=== PATIENT | male | born 1955 | race African-American/Black ===

== ENCOUNTER → 2016-07-12 | Outpatient (CLI) | payer MEDICARE, OTHER ==
[~2016-07-12] VITALS: Ht 162.6 cm; Wt 59.0 kg
[~2016-07-12] MED LIST: ACET325T47 PO; ASCO500 PO; ASPI81 PO; BACL10TA PO; BACTDSB PO; BISA10S PR; CIPR-278 PO; COLL30OI TP; DOCU-275 PO; DOCU100C PO; FERR-89 PO; FERR325T24 PO; FINA5TAB41 PO; LEVE250T55 PO; LEVE500T53 PO; LEVO500 PO; OMEP20CA4 PO; PETR113O TP; SENN-30 PO; VITAD1000 PO
[2016-07-12 09:42] VITALS: BP 109/63
== END | disposition home or self-care (01) ==
LOC: HBOWC 07:54
PROVIDERS: ATTEND Emergency Medicine
DX: L89.324 Pressure ulcer of left buttock, stage 4 (principal); L89.154 Pressure ulcer of sacral region, stage 4; L89.612 Pressure ulcer of right heel, stage 2; M62.50 Muscle wasting and atrophy, not elsewhere classified, unspecified site; I25.10 Atherosclerotic heart disease of native coronary artery without angina pectoris; G40.909 Epilepsy, unspecified, not intractable, without status epilepticus
CPT/HCPCS: 97597; 97598

== ENCOUNTER → 2016-07-19 | Outpatient (CLI) | payer MEDICARE, OTHER ==
[~2016-07-19] MED LIST changes: -BACTDSB PO; -CIPR-278 PO; -COLL30OI TP; -DOCU100C PO; -FERR-89 PO; -FERR325T24 PO; +FERS325 PO; -LEVE500T53 PO; -LEVO500 PO
[2016-07-19 14:11] VITALS: BP 128/72
== END | disposition home or self-care (01) ==
LOC: HBOWC 13:36
PROVIDERS: ATTEND Emergency Medicine
DX: L89.324 Pressure ulcer of left buttock, stage 4 (principal); L89.154 Pressure ulcer of sacral region, stage 4; L89.612 Pressure ulcer of right heel, stage 2; M21.371 Foot drop, right foot; R10.2 Pelvic and perineal pain; G89.29 Other chronic pain; M62.50 Muscle wasting and atrophy, not elsewhere classified, unspecified site; Q90.9 Down syndrome, unspecified; I25.10 Atherosclerotic heart disease of native coronary artery without angina pectoris; G40.909 Epilepsy, unspecified, not intractable, without status epilepticus
CPT/HCPCS: 97597; 97598

== ENCOUNTER → 2016-08-02 | Outpatient (CLI) | payer MEDICARE, OTHER ==
[~2016-08-02] MED LIST changes: +BACTDSB PO; +CIPR-278 PO; +COLL30OI TP; +FERR-89 PO; -FERS325 PO; +LEVE500T53 PO; +LEVO500 PO; +LIDOCAINE HCL 4% 50 ML SOLUTION TP ONE
[2016-08-02 14:45] VITALS: BP 100/60
== END | disposition home or self-care (01) ==
LOC: HBOWC 13:16
PROVIDERS: ATTEND Emergency Medicine
DX: L89.154 Pressure ulcer of sacral region, stage 4 (principal); L89.324 Pressure ulcer of left buttock, stage 4; L89.312 Pressure ulcer of right buttock, stage 2; L89.612 Pressure ulcer of right heel, stage 2; I25.10 Atherosclerotic heart disease of native coronary artery without angina pectoris; G40.909 Epilepsy, unspecified, not intractable, without status epilepticus
CPT/HCPCS: 87070; 87205; 97597; 97598

== ENCOUNTER → 2016-08-16 | Outpatient (CLI) | payer MEDICARE, OTHER ==
[~2016-08-16] MED LIST changes: -LIDOCAINE HCL 4% 50 ML SOLUTION TP ONE
[2016-08-16 13:38] VITALS: BP 103/70
== END | disposition home or self-care (01) ==
LOC: HBOWC 13:06
PROVIDERS: ATTEND Emergency Medicine
DX: L89.324 Pressure ulcer of left buttock, stage 4 (principal); L89.312 Pressure ulcer of right buttock, stage 2; L89.154 Pressure ulcer of sacral region, stage 4; M21.371 Foot drop, right foot; I95.9 Hypotension, unspecified; M62.50 Muscle wasting and atrophy, not elsewhere classified, unspecified site; I70.298 Other atherosclerosis of native arteries of extremities, other extremity
CPT/HCPCS: 87070; 87205; 97597; 97598

== ENCOUNTER 2016-08-18 13:10 | Emergency (ER) | payer MEDICARE, OTHER ==
[~2016-08-18] VITALS: Ht 165.1 cm; Wt 60.0 kg
[~2016-08-18 13:10] MED LIST changes: -BACTDSB PO; -FERR-89 PO; +FERS325 PO; -LEVE500T53 PO; -LEVO500 PO
[2016-08-18 14:18] LABS: BASOPHILS % (AUTO) 0.1 % (0.0-2.0); EOSINOPHILS % (AUTO) 0.2 % (1.0-6.0); HEMATOCRIT 35.3 % (41-53); HEMOGLOBIN 10.7 g/dL (13.5-17.5); LYMPHOCYTES # (AUTO) 1.9 K/uL (1.0-4.8); LYMPHOCYTES % (AUTO) 26.4 % (22.0-44.0); MEAN CORPUSCULAR HEMOGLOBIN 24.9 pg (26.0-34.0); MEAN CORPUSCULAR HGB CONC 30.3 G/dL (31.0-37.0); MEAN CORPUSCULAR VOLUME 82 fL (80-100); MONOCYTES # (AUTO) 0.9 K/uL (0.1-1.0); MONOCYTES % (AUTO) 12.5 % (2.0-9.0); NEUTROPHILS # (AUTO) 4.4 K/uL (1.8-7.7); NEUTROPHILS % (AUTO) 60.8 % (40.0-70.0); PLATELET COUNT (AUTO) 328 K/uL (150-450); RED BLOOD CELL COUNT(AUTO) 4.29 MIL/uL (4.50-5.90); RED CELL DISTRIBUTION WIDTH 16.1 % (11.5-14.5); WHITE BLOOD COUNT (AUTO) 7.2 K/uL (4.5-11.0)
[2016-08-18 14:25] LABS: ANION GAP 10 mmol/L (8-16); CALCIUM, TOTAL 8.4 mg/dL (8.8-10.5); CARBON DIOXIDE 25 mmol/L (22-29); CHLORIDE 102 mmol/L (98-107); CREATININE 1.16 mg/dL (0.60-1.30); GLOMERULAR FILTR. RATE CALC > 60 mL/min (>60); POTASSIUM 4.2 mmol/L (3.5-5.1); SODIUM SERUM 137 mmol/L (136-145); UREA NITROGEN, BLOOD 13 mg/dL (7-18)
[2016-08-18 14:30] LABS: ALANINE AMINOTRANSFERASE 38 U/L (12-78); ALBUMIN 2.2 g/dL (3.4-5.0); ASPARTATE AMINOTRANSFERASE 36 U/L (15-37); BILIRUBIN,TOTAL 0.2 mg/dL (0.1-1.0); TOTAL PROTEIN, SERUM 8.5 g/dL (6.4-8.2)
[2016-08-18 15:08] LABS: INFLUENZA TYPE B NEGATIVE FOR TYPE B (NEGATIVE)
[2016-08-18] MEDS ORDERED: LIDOCAINE HCL/PF 1% 2 ML VIAL IM ONE (16:15)
[2016-08-18] MEDS ORDERED: CefTRIAXone SODIUM 1 GM/VIAL IM ONE (16:15)
[2016-08-18] MEDS ORDERED: LEVE500T53 PO (16:17)
[2016-08-18 16:59] VITALS: BP 137/72
[2016-08-19] MEDS ORDERED: LEVO500 PO (11:50)
== END 2016-08-18 17:13 | disposition home or self-care (01) ==
LOC: EMS 13:12
DX: J40 Bronchitis, not specified as acute or chronic (principal); R62.7 Adult failure to thrive; Z79.82 Long term (current) use of aspirin
CPT/HCPCS: 36415; 71010; 80053; 85025; 87804; 96372; 99285; J0696; J3490

== ENCOUNTER → 2016-08-30 | Outpatient (CLI) | payer MEDICARE, OTHER ==
[~2016-08-30] MED LIST changes: +BACTDSB PO; -CIPR-278 PO; +FERR-89 PO; -FERS325 PO; -LEVE250T55 PO; +LEVE500T53 PO; +LEVO500 PO; +LIDOCAINE HCL 4% 50 ML SOLUTION TP ONE
[2016-08-30 13:59] VITALS: BP 113/77
== END | disposition home or self-care (01) ==
LOC: HBOWC 13:00
PROVIDERS: ATTEND Emergency Medicine
DX: L89.154 Pressure ulcer of sacral region, stage 4 (principal); L89.324 Pressure ulcer of left buttock, stage 4; L89.312 Pressure ulcer of right buttock, stage 2; M46.28 Osteomyelitis of vertebra, sacral and sacrococcygeal region; M21.371 Foot drop, right foot; I95.9 Hypotension, unspecified; I25.10 Atherosclerotic heart disease of native coronary artery without angina pectoris
CPT/HCPCS: 97597; 97598

== ENCOUNTER → 2016-09-13 | Outpatient (CLI) | payer MEDICARE, OTHER ==
[~2016-09-13] MED LIST changes: +CHLORHEXIDINE GLUCONATE 4% 118 ML TOPICAL LIQUID TP ONE; -LIDOCAINE HCL 4% 50 ML SOLUTION TP ONE
[2016-09-13 14:01] VITALS: BP 109/68
== END | disposition home or self-care (01) ==
LOC: HBOWC 13:11
PROVIDERS: ATTEND Emergency Medicine
DX: L89.154 Pressure ulcer of sacral region, stage 4 (principal); L89.324 Pressure ulcer of left buttock, stage 4; L89.312 Pressure ulcer of right buttock, stage 2; E11.69 Type 2 diabetes mellitus with other specified complication; M86.8X8 Other osteomyelitis, other site; M21.371 Foot drop, right foot; M62.50 Muscle wasting and atrophy, not elsewhere classified, unspecified site; Q90.9 Down syndrome, unspecified; I95.9 Hypotension, unspecified; I25.10 Atherosclerotic heart disease of native coronary artery without angina pectoris; Z79.82 Long term (current) use of aspirin
CPT/HCPCS: 87070; 87147; 87205; 97597; 97598

== ENCOUNTER → 2016-09-27 | Outpatient (CLI) | payer MEDICARE, OTHER ==
[~2016-09-27] MED LIST changes: -CHLORHEXIDINE GLUCONATE 4% 118 ML TOPICAL LIQUID TP ONE
[2016-09-27 12:18] VITALS: BP 102/48
== END | disposition home or self-care (01) ==
LOC: HBOWC 11:34
PROVIDERS: ATTEND Emergency Medicine
DX: L89.154 Pressure ulcer of sacral region, stage 4 (principal); L89.324 Pressure ulcer of left buttock, stage 4; L89.312 Pressure ulcer of right buttock, stage 2; M46.28 Osteomyelitis of vertebra, sacral and sacrococcygeal region
CPT/HCPCS: 97597

== ENCOUNTER → 2016-10-11 | Outpatient (CLI) | payer MEDICARE, OTHER ==
[2016-10-11 14:05] VITALS: BP 129/94
== END | disposition home or self-care (01) ==
LOC: HBOWC 12:54
PROVIDERS: ATTEND Emergency Medicine
DX: L89.154 Pressure ulcer of sacral region, stage 4 (principal); L89.324 Pressure ulcer of left buttock, stage 4; L89.312 Pressure ulcer of right buttock, stage 2; M62.50 Muscle wasting and atrophy, not elsewhere classified, unspecified site; Q90.9 Down syndrome, unspecified; M46.28 Osteomyelitis of vertebra, sacral and sacrococcygeal region; I25.10 Atherosclerotic heart disease of native coronary artery without angina pectoris; I95.9 Hypotension, unspecified
CPT/HCPCS: 97597; 97598

== ENCOUNTER → 2016-10-25 | Outpatient (CLI) | payer MEDICARE, OTHER ==
[~2016-10-25] MED LIST changes: -BACTDSB PO
[2016-10-25 14:06] VITALS: BP 143/96
== END | disposition home or self-care (01) ==
LOC: HBOWC 13:04
PROVIDERS: ATTEND Emergency Medicine Undersea and Hyperbaric Medicine
DX: L89.154 Pressure ulcer of sacral region, stage 4 (principal); L89.324 Pressure ulcer of left buttock, stage 4; L89.312 Pressure ulcer of right buttock, stage 2; I25.10 Atherosclerotic heart disease of native coronary artery without angina pectoris; E11.69 Type 2 diabetes mellitus with other specified complication; M46.28 Osteomyelitis of vertebra, sacral and sacrococcygeal region; Q90.9 Down syndrome, unspecified; Z79.82 Long term (current) use of aspirin
CPT/HCPCS: 97597

== ENCOUNTER → 2016-11-08 | Outpatient (CLI) | payer MEDICARE, OTHER ==
[~2016-11-08] MED LIST changes: +ACET-784 PO; +ASPI-1093 PO; +ASPI325T PO; +ASPI81TA2 PO; +BACTDSB PO; +BISA10SU8 RC; +CAND4 PO; +CHOL500014 PO; +CIPR-278 PO; +DOCU-174 PO; +DOCU100C PO; +ENOX100D5 SQ; +FERR1TAB24 PO; +FERR324T7 PO; +FERR325T24 PO; +LEVE1000 PO; +LEVE250T55 PO; +LEVE750T4 PO; +LISI10TA PO; +LORA-366 PO; +MULT1CAP32 PO; +OMEP20 PO; +OMEP20CA10 PO; +PANT40TA25 PO; +PHENY100 PO; +PROM25VI PO; +TRAZ-144 PO; +VICOT PO; +VIT B3 PO; +WARF4TAB41 PO; +WARF5 PO; +WARF6TAB23 PO; +WARF7.5 PO; +[UNRECOGNIZED DRUG - CODE] AU
[2016-11-08 14:10] VITALS: BP 112/61
== END | disposition home or self-care (01) ==
LOC: HBOWC 13:54
PROVIDERS: ATTEND Emergency Medicine
DX: E11.622 Type 2 diabetes mellitus with other skin ulcer (principal); L98.411 Non-pressure chronic ulcer of buttock limited to breakdown of skin; L98.491 Non-pressure chronic ulcer of skin of other sites limited to breakdown of skin; L89.154 Pressure ulcer of sacral region, stage 4; L89.324 Pressure ulcer of left buttock, stage 4; L89.312 Pressure ulcer of right buttock, stage 2; I25.10 Atherosclerotic heart disease of native coronary artery without angina pectoris; Q90.9 Down syndrome, unspecified; E11.69 Type 2 diabetes mellitus with other specified complication; M46.28 Osteomyelitis of vertebra, sacral and sacrococcygeal region; M86.8X8 Other osteomyelitis, other site; I95.9 Hypotension, unspecified; M21.371 Foot drop, right foot; Z79.82 Long term (current) use of aspirin; M62.50 Muscle wasting and atrophy, not elsewhere classified, unspecified site
CPT/HCPCS: 97597; 97598

== ENCOUNTER → 2016-11-22 | Outpatient (CLI) | payer MEDICARE, OTHER ==
[~2016-11-22] MED LIST changes: -ACET-784 PO; -ASPI-1093 PO; -ASPI325T PO; -ASPI81TA2 PO; -BACTDSB PO; -BISA10SU8 RC; -CAND4 PO; -CHOL500014 PO; -CIPR-278 PO; -DOCU-174 PO; -DOCU100C PO; -ENOX100D5 SQ; -FERR1TAB24 PO; -FERR324T7 PO; -FERR325T24 PO; -LEVE1000 PO; -LEVE250T55 PO; -LEVE750T4 PO; -LISI10TA PO; -LORA-366 PO; -MULT1CAP32 PO; -OMEP20 PO; -OMEP20CA10 PO; -PANT40TA25 PO; -PHENY100 PO; -PROM25VI PO; -TRAZ-144 PO; -VICOT PO; -VIT B3 PO; -WARF4TAB41 PO; -WARF5 PO; -WARF6TAB23 PO; -WARF7.5 PO; -[UNRECOGNIZED DRUG - CODE] AU
[2016-11-22 13:46] VITALS: BP_SYST 108; BP_SYST 139; BP_DIAS 67; BP_DIAS 73
== END | disposition home or self-care (01) ==
LOC: HBOWC 12:36
PROVIDERS: ATTEND Emergency Medicine
DX: E11.622 Type 2 diabetes mellitus with other skin ulcer (principal); L98.411 Non-pressure chronic ulcer of buttock limited to breakdown of skin; L98.491 Non-pressure chronic ulcer of skin of other sites limited to breakdown of skin; L89.154 Pressure ulcer of sacral region, stage 4; L89.324 Pressure ulcer of left buttock, stage 4; L89.312 Pressure ulcer of right buttock, stage 2; I25.10 Atherosclerotic heart disease of native coronary artery without angina pectoris; M46.28 Osteomyelitis of vertebra, sacral and sacrococcygeal region; M86.8X8 Other osteomyelitis, other site; M62.562 Muscle wasting and atrophy, not elsewhere classified, left lower leg; M62.561 Muscle wasting and atrophy, not elsewhere classified, right lower leg
CPT/HCPCS: 97597

== ENCOUNTER → 2016-12-05 | Outpatient (CLI) | payer MEDICARE, OTHER ==
[2016-12-05 14:57] VITALS: BP 105/72
== END | disposition home or self-care (01) ==
LOC: HBOWC 13:13
PROVIDERS: ATTEND Emergency Medicine
DX: E11.622 Type 2 diabetes mellitus with other skin ulcer (principal); L89.154 Pressure ulcer of sacral region, stage 4; L98.491 Non-pressure chronic ulcer of skin of other sites limited to breakdown of skin; L89.324 Pressure ulcer of left buttock, stage 4; L89.312 Pressure ulcer of right buttock, stage 2; L97.111 Non-pressure chronic ulcer of right thigh limited to breakdown of skin; I25.10 Atherosclerotic heart disease of native coronary artery without angina pectoris; E11.69 Type 2 diabetes mellitus with other specified complication; M46.28 Osteomyelitis of vertebra, sacral and sacrococcygeal region; M21.371 Foot drop, right foot; Z79.82 Long term (current) use of aspirin
CPT/HCPCS: 87070; 87205; 97597